=== PATIENT | female | born 2000 | race Caucasian/White ===

== ENCOUNTER 2020-01-04 09:57 | Emergency (ER) | payer OTHER ==
[2020-01-04] MEDS ORDERED: DICYCLOMINE HCL 20 MG TABLET PO ONE (12:11)
[2020-01-04] MEDS ORDERED: ONDANSETRON HCL INJ/PF 4 MG/2 ML SDV IV ONE (12:11)
[2020-01-04] MEDS ORDERED: NORMAL SALINE 1000 ML 1,000 ML IV ONE (12:11)
--- NOTE | 2020-01-04 12:15 | ER Document Report ---
ED GI/ - General Chief Complaint: Abdominal Pain Stated Complaint: ABDOMINAL PAIN/NAUSEA Time Seen by Provider: 01/04/20 11:32 Notes: Patient is a 19-year-old female who presents the emergency department with a chief complaint of abdominal pain. Patient states that her pain started about 3 to 4 days ago. She states that she felt constipated. This morning when she woke up she ended up having some diarrhea. Patient states that she has history of urinary tract infections in the past. She also has history of an appendectomy. Patient states that she was vomiting, but was given Phenergan another day. States that her symptoms got a little better. Patient still complains of pain. States the pain is in her mid abdomen. Patient also has history of having kidney and ureter surgery in the past. States that her "ureters are crossed." Last menstrual cycle was 3 weeks ago. Patient states that she has some vaginal discharge, but states that is her normal discharge. Denies any dysuria. - Related Data Allergies/Adverse Reactions: No Known Allergies Allergy (Verified 01/04/20 11:42) Past Medical History - Social History Smoking Status: Former Smoker Drug Abuse: Marijuana Family History: Reviewed & Not Pertinent Patient has homicidal ideation: No Past Surgical History: Reports: Hx Abdominal Surgery Review of Systems - Review of Systems Notes: REVIEW OF SYSTEMS: CONSTITUTIONAL : Denies recent illness. Denies recent unintentional weight loss. Denies fever, chills, or sweats. EENT: Denies eye, ear, throat, or mouth pain, discharge, or symptoms. Denies nasal or sinus congestion. CARDIOVASCULAR: Denies chest pain. RESPIRATORY: Denies shortness of breath, cough, congestion, difficulty breathing, or wheezing. GASTROINTESTINAL: See HPI. GENITOURINARY: Denies difficulty urinating, burning, blood in urine, urgency or frequency. MUSCULOSKELETAL: Denies neck and back pain. Denies joint pain or swelling. SKIN: Denies rash, itchiness, or lesions HEMATOLOGIC : Denies easy bruising or bleeding. LYMPHATIC: Denies swollen, painful, enlarged glands. NEUROLOGICAL: Denies no numbness or tingling denies weakness. Denies headache. Denies altered mental status. Denies alteration in speech. PSYCHIATRIC: Denies stress, anxiety, alteration in sleep patterns, or depression. All other systems reviewed and negative. Physical Exam - Vital signs Vitals: Temp Pulse Resp BP Pulse Ox 98.6 F 74 16 115/79 100 01/04/20 11:41 01/04/20 11:41 01/04/20 11:41 01/04/20 11:41 01/04/20 11:41 - Notes Notes: PHYSICAL EXAMINATION: GENERAL: Appears well, healthy, well-nourished, no acute distress. HEAD: Normocephalic, atraumatic. EYES: PERRL, conjunctiva normal, all extraocular movements intact, sclera nonicteric ENT: Moist mucous membranes. NECK: Supple, no noticeable swelling, redness, rash. Normal range of motion. LUNGS: Equal breath sounds bilaterally and clear to auscultation. No wheezes rales or rhonchi. CARDIOVASCULAR: S1-S2, regular rate, regular rhythm. Radial pulses 2+, normal. ABDOMEN: Normoactive bowel sounds. Soft, mildly tender, no guarding, no rebound tenderness, and no masses palpated. EXTREMITIES: Normal strength and range of motion, no pitting or edema. No cyano sis. NEUROLOGICAL: Moves all extremities upon command. Strength 5/5 in all extremities. PSYCH: Normal mood, normal affect. SKIN: Warm, dry. No rash, lesions, ulcerations noted. Normal skin turgor. Course - Re-evaluation Re-evalutation: 01/04/20 14:33 Patient states that she feels better after receiving Bentyl and Zofran. Hematology and chemistries are unremarkable. Urinalysis shows that she is dehydrated with ketones in her urine. We will send her urine for culture, she has history of UTIs in the past. KUB is normal. No constipation noted. I have a low suspicion for mesenteric ischemia diverticulitis, or diverticulosis. Since the patient has recently traveled, I recommended that she get tested for COVID-19. She is in agreement with this plan. She is nontoxic in appearance. Follow-up precautions were given. Verbal discharge instructions were given to the patient. They verbalized understanding. They are stable for discharge. - Vital Signs Vital signs: Temp Pulse Resp BP Pulse Ox 98.7 F 67 16 130/54 H 100 01/04/20 15:04 01/04/20 15:04 01/04/20 15:04 01/04/20 15:04 01/04/20 15:04 - Laboratory Result Diagrams: 01/04/20 12:55 01/04/20 12:55 Laboratory results interpreted by me: 01/04/20 13:31 Urine Protein 30 H Urine Ketones 80 H Urine Urobilinogen 4.0 H Discharge - Discharge Clinical Impression: Person under investigation for COVID-19 Abdominal pain Qualifiers: Abdominal location: generalized Qualified Code(s): R10.84 - Generalized abdominal pain Nausea & vomiting Qualifiers: Vomiting type: unspecified Vomiting Intractability: unspecified Qualified Code(s): R11.2 - Nausea with vomiting, unspecified Diarrhea Qualifiers: Diarrhea type: unspecified type Qualified Code(s): R19.7 - Diarrhea, unspecified Condition: Stable Disposition: HOME, SELF-CARE Instructions: Antinausea Medication ([facility]), Antispasmodics ([facility]), Vomiting ([facility]) Additional Instructions: You were seen today in the emergency department for nausea, vomiting, and diarrhea. Your labs and x-ray were normal. Your urine showed that you are s lightly dehydrated. Your urine was also sent for culture. You are being started on Bentyl and Zofran to help with your symptoms. Please follow-up with your primary care provider when you go home. You are also being tested for COVID-19. Please make sure you self isolate. Take Tylenol as needed for any fever. Wash your hands frequently. Wear a mask. Prescriptions: Dicyclomine HCl [Bentyl 20 mg Tablet] 20 mg PO QID PRN #30 tablet PRN Reason: Ondansetron [Zofran Odt 4 mg Tablet] 1 - 2 tab PO Q4H PRN #30 tab.rapdis PRN Reason: For Nausea/Vomiting
--- NOTE | 2020-01-04 12:52 | RADIOLOGY REPORT (SQ) ---
EXAM DESCRIPTION: KUB/ABDOMEN (SINGLE VIEW) IMAGES COMPLETED DATE/TIME: 01/04/2020 12:37 pm REASON FOR STUDY: abdominal pain; constipation COMPARISON: None. NUMBER OF VIEWS: One view. TECHNIQUE: Supine radiographic image of the abdomen acquired. LIMITATIONS: None. FINDINGS: BOWEL GAS PATTERN: Normal bowel gas pattern. No dilated loops. CONSTIPATION: None CALCIFICATIONS: No suspicious calcifications. SOFT TISSUES: No gross mass or suggestion of organomegaly. HARDWARE: None in the abdomen. BONES: No acute fracture. No worrisome bone lesions. OTHER: No other significant finding. IMPRESSION: NO RADIOGRAPHIC EVIDENCE FOR ACUTE ABDOMINAL DISEASE. None constipation. TECHNICAL DOCUMENTATION: JOB ID: [id number] [employer]- All Rights Reserved Reading location - IP/workstation name: [email or web address]
[2020-01-04 13:13] LABS: ABSOLUTE LYMPHOCYTES (AUTO) 1.1 10^3/uL (0.5-4.7); ABSOLUTE MONOCYTES (AUTO) 0.4 10^3/uL (0.1-1.4); ABSOLUTE NEUT (AUTO) 2.5 10^3/uL (1.7-8.2); BASOPHILS % (AUTO) 0.7 % (0-2); EOSINOPHILS % (AUTO) 0.7 % (0-6); HEMATOCRIT 39.4 % (36.0-47.0); HEMOGLOBIN 13.9 g/dL (12.0-15.5); LYMPHOCYTES % (AUTO) 27.9 % (13-45); MEAN CORPUSCULAR HEMOGLOBIN 30.5 pg (27.0-33.4); MEAN CORPUSCULAR HGB CONC 35.1 g/dL (32.0-36.0); MEAN CORPUSCULAR VOLUME 87 fl (80-97); MONOCYTES % (AUTO) 9.1 % (3-13); PLATELET COUNT 153 10^3/uL (150-450); RED BLOOD COUNT 4.55 10^6/uL (3.72-5.28); RED CELL DISTRIBUTION WIDTH 12.6 % (11.5-14.0); SEGMENTED NEUTROPHILS % (AUTO) 61.6 % (42-78); TOTAL CELLS COUNTED % (AUTO) 100 %; WHITE BLOOD COUNT 4.1 10^3/uL (4.0-10.5)
[2020-01-04 13:30] LABS: ALBUMIN 4.5 g/dL (3.5-5.0); ALKALINE PHOSPHATASE 53 U/L (38-126); ANION GAP 10 (5-19); ASPARTATE AMINO TRANSFERASE 20 U/L (14-36); BILIRUBIN,TOTAL 1.3 mg/dL (0.2-1.3); BLOOD UREA NITROGEN 9 mg/dL (7-20); CALCIUM 9.4 mg/dL (8.4-10.2); CARBON DIOXIDE 23 mmol/L (22-30); CHLORIDE 105 mmol/L (98-107); GLUCOSE 88 mg/dL (75-110); POTASSIUM 3.9 mmol/L (3.6-5.0); TOTAL PROTEIN 7.1 g/dL (6.3-8.2)
[2020-01-04 14:14] LABS: APPEARANCE,URINE SLIGHTLY-CLOUDY; BILIRUBIN,URINE NEGATIVE (NEGATIVE); COLOR,URINE YELLOW; GLUCOSE, URINE NEGATIVE (NEGATIVE); KETONES,URINE 80 mg/dL (NEGATIVE); PROTEIN,URINE 30 mg/dL (NEGATIVE); URINE SPECIFIC GRAVITY 1.025
[2020-01-04 15:07] VITALS: BP 130/54
== END 2020-01-04 15:08 | disposition home or self-care (01) ==
LOC: ER 09:57
DX: R10.84 Generalized abdominal pain (principal); R11.2 Nausea with vomiting, unspecified; R19.7 Diarrhea, unspecified; Z20.828 Contact with and (suspected) exposure to other viral communicable diseases; Z87.891 Personal history of nicotine dependence
CPT/HCPCS: 99284; 96361; 96374; 36415; 87086; 85025; 87635; 81025; 80053; 81001; 74018; J3490; J2405; J7030; C9803